=== PATIENT | male | born 1985 | race African-American/Black ===

== ENCOUNTER 2020-05-29 19:13 | Emergency (ER) | payer SELFPAY ==
[2020-05-29] MEDS ORDERED: LIDOCAINE 1% 20 ML MDV ONE (20:32)
--- NOTE | 2020-05-29 20:41 | EDPHYS ---
Physician Documentation [facility] Name: Bess Baumann Age: 35 yrs Sex: Male : 1985 Arrival Date: 05/29/2020 Time: 19:14 Bed 24 Private MD: ED Physician Romel Mendoza HPI: 05/29 19:44 This 35 yrs old Black Male presents to ER via Ambulatory with complaints of Arm Swollen.pkl 19:44 The patient presents with an abscess of the abscess. Description: The affected area is pkl moderate sized, approximately 3 cm(s), localized, erythematous, fluctuant, swollen. Onset: The symptoms/episode began/occurred 2 day(s) ago. Associated signs and symptoms: The patient has no apparent associated signs or symptoms. The patient has not experienced similar symptoms in the past. Historical: - Allergies: 19:26 Ibuprofen; ll1 - PSHx: 19:26 Tonsillectomy; ll1 - Immunization history:: Flu vaccine is not up to date. - Social history:: Smoking status: Patient reports the use of cigarette tobacco products, cigars, Patient/guardian denies using alcohol, street drugs. ROS: 19:44 Eyes: Negative for injury, pain, redness, and discharge, ENT: Negative for injury, pkl pain, and discharge, Neck: Negative for injury, pain, and swelling, Cardiovascular: Negative for chest pain, palpitations, and edema, Respiratory: Negative for shortness of breath, cough, wheezing, and pleuritic chest pain, Abdomen/GI: Negative for abdominal pain, nausea, vomiting, diarrhea, and constipation, Back: Negative for injury and pain, : Negative for injury, bleeding, discharge, and swelling, Neuro: Negative for headache, weakness, numbness, tingling, and seizure. 19:44 MS/extremity: Positive for pain, swelling, warmth, of the right elbow. 19:44 Neuro: Negative for altered mental status. Exam: 19:44 Head/Face: Normocephalic, atraumatic. Eyes: Pupils equal round and reactive to light, pkl extra-ocular motions intact. Lids and lashes normal. Conjunctiva and sclera are non-icteric and not injected. Cornea within normal limits. Periorbital areas with no swelling, redness, or edema. ENT: Nares patent. No nasal discharge, no septal abnormalities noted. Tympanic membranes are normal and external auditory canals are clear. Oropharynx with no redness, swelling, or masses, exudates, or evidence of obstruction, uvula midline. Mucous membranes moist. Neck: Trachea midline, no thyromegaly or masses palpated, and no cervical lymphadenopathy. Supple, full range of motion without nuchal rigidity, or vertebral point tenderness. No Meningismus. Chest/axilla: Normal chest wall appearance and motion. Nontender with no deformity. No lesions are appreciated. Cardiovascular: Regular rate and rhythm with a normal S1 and S2. No gallops, murmurs, or rubs. Normal PMI, no JVD. No pulse deficits. Respiratory: Lungs have equal breath sounds bilaterally, clear to auscultation and percussion. No rales, rhonchi or wheezes noted. No increased work of breathing, no retractions or nasal flaring. Abdomen/GI: Soft, non-tender, with normal bowel sounds. No distension or tympany. No guarding or rebound. No evidence of tenderness throughout. Back: No spinal tenderness. No costovertebral tenderness. Full range of motion. Neuro: Awake and alert, GCS 15, oriented to person, place, time, and situation. Cranial nerves II-XII grossly intact. Motor strength 5/5 in all extremities. Sensory grossly intact. Cerebellar exam normal. Normal gait. 19:44 Musculoskeletal/extremity: Extremities: grossly normal except: noted in the right elbow: erythema, pain, swelling. Vital Signs: 19:25 BP 124 / 73; Pulse 71; Resp 17; Temp 98.7; Pulse Ox 100% ; Pain 6/10; ll1 20:15 BP 132 / 79; Pulse 62; Resp 16; Pulse Ox 100% on R/A; jb4 Procedures: 20:38 I \T\ D: Incision and drainage was performed for an abscess of the right elbow Prepped pk with Betadine, Anesthetized with 3 ml's 1% Lidocaine. Incised with #11 blade. Drained moderate amount purulent fluid. Packed with iodoform gauze, Dressing: sterile 4x4 gauze, the patient tolerated the procedure well. MDM: 19:36 Patient medically screened. pk 20:38 Data reviewed: vital signs, nurses notes. [facility] 05/29 20:23 Order name: Wound Culture [facility] 05/29 20:23 Order name: I\T\D Setup; Complete Time: 20:26 jb4 Administered Medications: 20:27 Drug: Lidocaine (1 %) 1 application {Note: Administered by ER provider.} Volume: 20 ml; jb4 Route: Infiltration; 21:00 Drug: Ancef 1 grams Route: IM; Site: left gluteus; jb4 21:19 Follow up: Response: No adverse reaction jb4 Disposition: 05/29/20 20:41 Discharged to Home. Impression: Abscess right elbow. - Condition is Stable. - Prescriptions for Bactrim DS 800- 160 mg Oral Tablet - take 1 tablet by ORAL route every 12 hours for 7 days; 14 tablet. - Work release form, Medication Reconciliation Form, Thank You Letter, Antibiotic Education, Prescription Opioid Use form. - Follow up: Cameron Barkley MD; When: 2 - 3 days; Reason: Re-evaluation by your physician. - Problem is new. - Symptoms have improved. Signatures: Dispatcher [employer] EDMS Romel Mendoza MD MD pkl Cameron Ridley, RN RN jb4 Mara Hickey RN RN ll1 Corrections: (The following items were deleted from the chart) 21:21 20:41 05/29/2020 20:41 Discharged to Home. Impression: Abscess right elbow. Condition jb4 is Stable. Forms are Medication Reconciliation Form, Thank You Letter, Antibiotic Education, Prescription Opioid Use. Follow up: Cameron Barkley; When: 2 - 3 days; Reason: Re-evaluation by your physician. Problem is new. Symptoms have improved. pkl
--- NOTE | 2020-05-29 20:41 | ER ---
Nurse's Notes [facility] Name: Bess Baumann Age: 35 yrs Sex: Male : 1985 Arrival Date: 05/29/2020 Time: 19:14 Bed 24 Private MD: Diagnosis: Abscess right elbow Presentation: 05/29 19:25 Coronavirus screen: Client denies travel out of the [place] in the last 14 days. At this ll1 time, the client does not indicate any symptoms associated with coronavirus-19. Ebola Screen: Patient denies travel to an Ebola-affected area in the 21 days before illness onset. Initial Sepsis Screen: Does the patient meet any 2 criteria? No. Patient's initial sepsis screen is negative. Risk Assessment: Do you want to hurt yourself or someone else? Patient reports no desire to harm self or others. Onset of symptoms was May 27, 2020. 19:25 Method Of Arrival: Ambulatory ll1 19:25 Acuity: GERMAINE 4 ll1 19:28 Chief complaint: Patient states: Right elbow abscess for 2 days getting progressively ll1 worse. No drainage at this time. No fever. Would like a work excuse. Historical: - Allergies: 19:26 Ibuprofen; ll1 - PSHx: 19:26 Tonsillectomy; ll1 - Immunization history:: Flu vaccine is not up to date. - Social history:: Smoking status: Patient reports the use of cigarette tobacco products, cigars, Patient/guardian denies using alcohol, street drugs. Screenin:40 Abuse screen: Denies threats or abuse. Nutritional screening: No deficits noted. jb4 Tuberculosis screening: No symptoms or risk factors identified. Fall Risk None identified. Assessment: 19:40 General: Appears in no apparent distress. uncomfortable, Behavior is calm, cooperative, jb4 appropriate for age. Pain: Complains of pain in right arm Pain radiates to Right shoulder Pain currently is 6 out of 10 on a pain scale. Neuro: Level of Consciousness is awake, alert, obeys commands, Oriented to person, place, time, situation. Cardiovascular: Patient's skin is warm and dry. Respiratory: Airway is patent Respiratory effort is even, unlabored, Respiratory pattern is regular, symmetrical. GI: No signs and/or symptoms were reported involving the gastrointestinal system. : No signs and/or symptoms were reported regarding the genitourinary system. EENT: No signs and/or symptoms were reported regarding the EENT system. Derm: Skin is intact, Skin is pink, warm \T\ dry. Abscess located on right elbow is half dollar sized, has no drainage, is hot to touch, is red, is raised. Musculoskeletal: Circulation, motion, and sensation intact. Range of motion: intact in all extremities. 20:35 Reassessment: Patient appears in no apparent distress at this time. Patient and/or jb4 family updated on plan of care and expected duration. Pain level reassessed. Patient is alert, oriented x 3, equal unlabored respirations, skin warm/dry/pink. Provider at the bedside performing I\T\D. 21:20 Reassessment: Patient appears in no apparent distress at this time. Patient and/or jb4 family updated on plan of care and expected duration. Pain level reassessed. Patient is alert, oriented x 3, equal unlabored respirations, skin warm/dry/pink. Pt verbalized understanding of d/c and follow up instructions. Denies questions or concerns. Ambulated out of ED with steady gait. Vital Signs: 19:25 BP 124 / 73; Pulse 71; Resp 17; Temp 98.7; Pulse Ox 100% ; Pain 6/10; ll1 20:15 BP 132 / 79; Pulse 62; Resp 16; Pulse Ox 100% on R/A; jb4 ED Course: 19:14 Patient arrived in ED. cl3 19:26 Triage completed. ll1 19:26 Arm band placed on Patient placed in an exam room, on a stretcher. ll1 19:34 Cameron Ridley, RN is Primary Nurse. jb4 19:35 Romel Mendoza MD is Attending Physician. pkl 19:40 Patient has correct armband on for positive identification. Bed in low position. Call jb4 light in reach. Side rails up X 1. Pulse ox on. NIBP on. 20:35 Assist provider with I \T\ D: of an abscess on right Elbow Set up I\T\D tray. Performed by david 4 Romel Mendoza MD Culture sent to lab. Wound packed. iodoform gauze, Dressing with 4X4s, Patient tolerated well. 20:40 Cameron Barkley MD is Referral Physician. pkl 21:21 Patient did not have IV access during this emergency room visit. jb4 Administered Medications: 20:27 Drug: Lidocaine (1 %) 1 application {Note: Administered by ER provider.} Volume: 20 ml; jb4 Route: Infiltration; 21:00 Drug: Ancef 1 grams Route: IM; Site: left gluteus; jb4 21:19 Follow up: Response: No adverse reaction jb4 Outcome: 20:41 Discharge ordered by . luis fernando 21:21 Discharged to home ambulatory. jb4 21:21 Condition: stable 21:21 Discharge instructions given to patient, Instructed on discharge instructions, follow up and referral plans. medication usage, wound care, Demonstrated understanding of instructions, follow-up care, medications, wound care, Prescriptions given X 1. 21:21 Patient left the ED. jb4 Addendum: 06/02/2020 07:13 Addendum: Culture Results: Positive wound culture. No further action required. Bacteria e b sensitive to prescribed antibiotic. Signatures: Romel Mendoza MD MD pkl Cameron Ridley, BRENDAN RN jb4 Sharifa Chauhan Charde cl3 Mara Hickey RN RN ll1
[2020-05-29] MEDS ORDERED: WATER FOR INJ,STERILE 10 ML ONE (20:56)
[2020-05-29] MEDS ORDERED: CEFAZOLIN SODIUM 1 GM/VIAL ONE (20:56)
[2020-05-31 12:00] VITALS: TEMP 98.7; O2SAT 100
[2020-05-31 12:01] VITALS: BP 132/79
== END 2020-05-29 21:21 | disposition home or self-care (01) ==
LOC: ER 19:13
PROC: 0J9G0ZZ Drainage of Right Lower Arm Subcutaneous Tissue and Fascia, Open Approach (ICD-10-PCS; principal; 2020-05-29)
DX: L02.413 Cutaneous abscess of right upper limb (principal); F17.290 Nicotine dependence, other tobacco product, uncomplicated; Z88.6 Allergy status to analgesic agent
CPT/HCPCS: 87070; 87077; 87186; 87205; 96372; 99284; J0690

== ENCOUNTER 2020-06-30 07:07 | Emergency (ER) | payer OTHER, SELFPAY ==
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
[2020-06-30 08:44] VITALS: BP 149/101; TEMP 97.8; O2SAT 100
== END 2020-06-30 08:29 | disposition home or self-care (01) ==
LOC: ER 07:07
DX: S50.11XA Contusion of right forearm, initial encounter (principal); V49.50XA Passenger injured in collision with unspecified motor vehicles in traffic accident, initial encounter; Z88.6 Allergy status to analgesic agent
CPT/HCPCS: 99283